=== PATIENT | female | born 1995 | race Two or more races ===

== ENCOUNTER 2017-05-29 16:27 | Emergency (ER) | payer MEDICAID ==
[~2017-05-29] VITALS: Ht 165.1 cm; Wt 79.0 kg
[2017-05-29 17:23] VITALS: BP 128/89
[2017-05-29] MEDS ORDERED: ACETAMINOPHEN 500MG TABLET PO ONE (17:30)
[2017-05-29] MEDS ORDERED: TETANUS, DIPHTHERIA, PERTUSSIS VAC/PF 0.5ML (>7YR OLD) IM ONE (17:30)
[2017-05-29] MEDS ORDERED: IBUPROFEN 600MG TABLET PO ONE (17:30)
[2017-05-29] MEDS ORDERED: BACITRACIN ZINC OINT UDPKT TOP ONE (18:00)
== END 2017-05-29 18:45 | disposition home or self-care (01) ==
LOC: ER 16:27
DX: S61.451A Open bite of right hand, initial encounter (principal); D64.9 Anemia, unspecified; W54.0XXA Bitten by dog, initial encounter; Y93.89 Activity, other specified; Y99.8 Other external cause status; Y92.89 Other specified places as the place of occurrence of the external cause
CPT/HCPCS: 73090; 81025; 90471; 90715; 99284